=== PATIENT | female | born 1940 | race Caucasian/White ===

== ENCOUNTER 2019-05-21 14:56 | Observation (INO) | payer MEDICARE ==
[~2019-05-21] VITALS: Ht 162.6 cm; Wt 102.1 kg
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
--- OUTSIDE RECORDS SUMMARY | 2019-05-21 14:59 | XMS REPORT | Clinical Summary ---
Author Author [facility] Address Unknown Phone Unavailable Care Team Providers Care Consumer Services Advisor Name Role Phone Joel Diaz PCP Allergies Comments Active Allergy Reactions Severity Noted Date Tetanus Vaccines And Swelling 06/27/2016 Toxoid Medications End Date Status Medication Sig Dispensed Refills Start Date Active lisinopril Take 20 mg by 0 (PRINIVIL,ZESTRIL) 20 MG mouth 2 (two) tablet times daily . Active metFORMIN (GLUCOPHAGE) Take 1,000 mg 0 500 MG tablet by mouth daily with breakfast . Active aspirin 81 MG EC tablet Take 81 mg by 0 mouth daily. Active atorvastatin (LIPITOR) 20 Take 20 mg by 0 MG tablet mouth daily. Active hydroCHLOROthiazide Take 12.5 mg 0 (HYDRODIURIL) 12.5 MG by mouth tablet daily. Active glimepiride (AMARYL) 2 MG Take 2 mg by 0 tablet mouth every morning before breakfast. Active Problems Problem Noted Date H/O colostomy 07/24/[address] 07/24/2017 Generalized weakness 07/16/2016 Tachypnea 07/16/2016 Surgical pneumoperitoneum 07/16/2016 Essential hypertension 07/16/2016 Type 2 diabetes mellitus 07/16/2016 Tachycardia 07/16/2016 Elevated troponin 07/16/2016 Respiratory distress 07/16/2016 Near syncope 07/16/2016 Diverticulitis large intestine 07/11/2016 Social History Date Tobacco Use Types Packs/Day Years Used Quit: 12/02/1994 Former Smoker Smokeless Tobacco: Never Used Comments: quit smoking 1994 Alcohol Use Drinks/Week oz/Week Comments No Sex Assigned at Date Recorded Not on file Industry Job Start Date Occupation Not on file Not on file Not on file Travel End Travel History Travel Start No recent travel history available. Last Filed Vital Signs Not on file Plan of Treatment Not on file Implants Device Identifier Shelf Expiration Date Model / Serial / Lot Implanted Type Area Manufactur er 08/01/2018 4301-02 / / [id number] Memb Seprafilm Adhen Chow 5x6 Cement/Gregor N/A: Abdomen GENZYME 4301-02 - [id number] ler/Adhesi SHAHEEN: Implanted: Qty: 1 on 07/11/2016 by Chaka Georges MD 08/01/2018 4301-02 / / [id number] Memb Seprafilm Adhen Chow 5x6 Cement/Gregor N/A: Abdomen GENZYME 4301-02 - [id number] ler/Adhesi SHAHEEN: Implanted: Qty: 1 on 07/16/2016 by Chaka Georges MD 03/31/2018 4301-02 / / [id number] Memb Seprafilm Adhen Chow 5x6 Cement/Gregor N/A: Abdomen GENZYME 4301-02 - [id number] ler/Adhesi SHAHEEN: Implanted: Qty: 1 on 07/16/2016 by Chaka Georges MD 08/01/2019 4301-02 / / [id number] Memb Seprafilm Adhen Chow 5x6 Cement/Gregor GENZYME 4301-02 - [id number] ler/Adhesi SHAHEEN: Implanted: Qty: 1 on 07/24/2017 by Chaka Georges MD 09/17/2019 [id number] / / [id number] Cath Exp Silv [employer] Brakes Bonder 12.5cmx Pain N/A: Abdomen JENNIFER-C Xb119-D - [id number] Mgmt/Stimu LARK Implanted: Qty: 1 on 07/24/2017 by Chaka So MD 09/17/2019 HJ270-H / / [id number] Cath Exp Silv [employer] Brakes Bonder 12.5cmx Pain N/A: Abdomen JENNIFER-C Zc257-O - [id number] Mgmt/Stimu LARK Implanted: Qty: 1 on 07/24/2017 by Chaka So MD 09/25/2019 IF7090 / / [id number] Block Nrv C-Blk 1-7ml/Hr 600ml Pain N/A: Abdomen HALYARD Uk9161 - [id number] Mgmt/Stimu HEALTH Implanted: Qty: 1 on 07/24/2017 by Chaka So MD Results Not on fileafter 05/20/2018 Insurance Payer Benefit Subscriber ID Type Phone Address Plan / Group [employer] KELSEYCARE xxxxxxxxxxx MEDICARE ADV Advance Directives For more information, please contact: [facility] [address] [place] [address] Date Inactivated Comments Code Status Date Activated 07/30/2017 9:52 PM Full Code 07/24/2017 6:30 AM This code status was determined by: Patient 07/23/2016 6:22 PM Full Code 07/16/2016 12:37 AM This code status was determined by: Patient 07/15/2016 5:35 PM Full Code 07/11/2016 6:12 AM This code status was determined by: Patient
[2019-05-21] MEDS ORDERED: SODIUM CHLORIDE 0.9% 1000ML 1,000 ML IV SCH (15:15)
[2019-05-21] MEDS ORDERED: ACETAMINOPHEN 325 MG TAB PO NR (15:30)
[2019-05-21 15:31] LABS: BASOPHILS % 0.2 % (0.0-1.0); EOSINOPHILS # (AUTO) 0.1 (0.0-0.4); EOSINOPHILS % 1.2 % (0.0-6.0); HEMATOCRIT 32.7 % (34.2-44.1); HEMOGLOBIN 11.8 g/dL (12.0-16.0); LYMPHOCYTES % 10.9 % (18.0-39.1); MEAN CORPUSCULAR HEMOGLOBIN 28.9 pg (28-32); MEAN CORPUSCULAR HGB CONC 36.1 g/dL (31-35); MEAN CORPUSCULAR VOLUME 80.1 fL (81-99); MONOCYTES # (AUTO) 0.9 (0.2-0.8); MONOCYTES % 9.9 % (4.4-11.3); NEUTROPHILS # (AUTO) 7.1 (2.1-6.9); NEUTROPHILS % 77.3 % (38.7-80.0); PLATELET COUNT 160 x10e3/uL (140-360); RED BLOOD COUNT 4.08 x10e6/uL (3.6-5.1); RED CELL DISTRIBUTION WIDTH 12.5 % (11.7-14.4)
[2019-05-21 15:40] LABS: STREPTOCOCCUS GRP A ANTIGEN NEGATIVE (NEGATIVE)
[2019-05-21 15:50] LABS: INFLUENZAE A&B ANTIGEN (RAPID) NEGATIVE (NEGATIVE)
[2019-05-21 15:51] LABS: ALBUMIN 3.3 g/dL (3.5-5.0); ANION GAP 16.9 mmol/L (8-16); CALCIUM 8.8 mg/dL (8.4-10.2); CREATININE, SERUM 1.09 mg/dL (0.57-1.11); POTASSIUM 3.9 mmol/L (3.5-5.1)
[2019-05-21] MEDS ORDERED: ONDANSETRON HCL INJ 2MG/ML 2ML 2 MG/ML VIAL IV NR (16:00)
--- NOTE | 2019-05-21 16:28 | Diagnostic Imaging Report ---
EXAMINATION: PA and lateral views of the chest. COMPARISON: None CLINICAL HISTORY: Sepsis, chest pain DISCUSSION: Lines/tubes: None. Lungs: The lungs are well inflated and clear. There is no evidence of pneumonia or pulmonary edema. Pleura: There is no pleural effusion or pneumothorax. Heart and mediastinum: Cardiomediastinal contour is within normal limits for age with atherosclerotic calcification of the thoracic aorta. Bones and soft tissues: No acute bony abnormalities. Degenerative changes in the thoracic spine IMPRESSION: No acute cardiopulmonary abnormalities. Signed by: Dr. Davey Douglass M.D. on 05/21/2019 4:25 PM
[2019-05-21 18:05] LABS: BILIRUBIN,URINE NEGATIVE (NEGATIVE); CLARITY,URINE CLOUDY (CLEAR); COLOR,URINE STRAW (YELLOW); KETONES,URINE NEGATIVE (NEGATIVE); LEUKOCYTE ESTERASE ,URINE LARGE (NEGATIVE); NITRITE,URINE NEGATIVE (NEGATIVE); PROTEIN,URINE DIPSTICK TRACE (NEGATIVE); URINE UROBILINOGEN 0.2 mg/dL (0.2 - 1)
[2019-05-21 18:18] LABS: BACTERIA,URINE MANY /HPF; EPITHELIAL CELLS,URINE FEW /LPF; TRANSITIONAL EPI CELLS,URINE FEW; WBC,URINE (MAN) 21-50 /HPF (0-5)
--- NOTE | 2019-05-21 18:58 | NUR ---
Report to PAYTON Biggs
[2019-05-21 20:00] VITALS: BP 159/76
[2019-05-21] MEDS ORDERED: ASPIRIN 81 MG CHEW TAB PO ONE (20:30)
[2019-05-21] MEDS ORDERED: DEXTROSE 50% SYRINGE 50 ML IV PRN (20:30)
--- OUTSIDE RECORDS SUMMARY | 2019-05-21 20:34 | XMS REPORT | Clinical Summary ---
Author Author [facility] Address Unknown Phone Unavailable Care Team Providers Care Manager Labor Relations Name Role Phone Joel Diaz PCP Allergies [...] Area Manufactur er 08/01/2018 4301-02 / / [id number] Memb Seprafilm Adhen Chow 5x6 Cement/Gregor N/A: Abdomen GENZYME 4301-02 - [id number] ler/Adhesi SHAHEEN: Implanted: Qty: 1 on 07/11/2016 by Chaka Georges MD 08/01/2018 4301-02 / / [id number] Memb Seprafilm Adhen Chow 5x6 Cement/Gregor N/A: Abdomen GENZYME 4301-02 - [id number] ler/Adhesi SHAHEEN: Implanted: Qty: 1 on 07/16/2016 by Chaka Georges MD 03/31/2018 4301-02 / / [id number] Memb Seprafilm Adhen Chow 5x6 Cement/Gregor N/A: Abdomen GENZYME 4301-02 - [id number] ler/Adhesi SHAHEEN: Implanted: Qty: 1 on 07/16/2016 by Chaka Georges MD 08/01/2019 4301-02 / / [id number] Memb Seprafilm Adhen Chow 5x6 Cement/Gregor GENZYME 4301-02 - [id number] ler/Adhesi SHAHEEN: Implanted: Qty: 1 on 07/24/2017 by Chaka Georges MD 09/17/2019 FW350-W / / [id number] 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 12.5cmx Pain N/A: Abdomen JENNIFER-C Cl431-F - [id number] Mgmt/Stimu LARK Implanted: Qty: 1 on 07/24/2017 by Chaka So MD 09/17/2019 SY881-L / / [id number] 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 12.5cmx Pain N/A: Abdomen JENNIFER-C Sv156-K - [id number] Mgmt/Stimu LARK Implanted: Qty: 1 on 07/24/2017 by Chaka So MD 09/25/2019 LS7762 / / [id number] Block Nrv C-Blk 1-7ml/Hr 600ml Pain N/A: Abdomen HALYARD Fk4222 - [id number] Mgmt/Stimu HEALTH Implanted: Qty: 1 on 07/24/2017 by Chaka So MD Results Not on fileafter 05/20/2018 Insurance Payer Benefit Subscriber ID Type Phone Address Plan / Group K[employer] KELSEYCARE xxxxxxxxxxx MEDICARE ADV Advance Directives For more information, please contact: [facility] [address] [place] [place] [address] Date Inactivated Comments Code Status Date Activated 07/30/2017 9:52 PM Full Code 07/24/2017 6:30 AM This code status was determined by: Patient 07/23/2016 6:22 PM Full Code 07/16/2016 12:37 AM This code status was determined by: Patient 07/15/2016 5:35 PM Full Code 07/11/2016 6:12 AM This code status was determined by: Patient
[2019-05-21] MEDS: CEFTRIAXONE SOD 1 GM/NS 50 ML 50 ML IV SCH (20:35)
[2019-05-21] MEDS ORDERED: CARVEDILOL25 MG PO (20:45)
[2019-05-21] MEDS ORDERED: TROSPIUM CHLORI20 MG PO (20:45)
[2019-05-21] MEDS ORDERED: LISINOPRIL20 MG PO (20:45)
[2019-05-21] MEDS ORDERED: HYDROCHLOROTH12.5 M1 PO (20:45)
[2019-05-21] MEDS ORDERED: METFORMIN HCL500 M1 PO (20:45)
[2019-05-21] MEDS: INSULIN REGULAR, HUMAN 100 UNIT/1 ML 3ML VIAL SQ SCH (20:48)
--- NOTE | 2019-05-21 22:47 | NUR ---
pt placed on telemetry box# 25.
[2019-05-22] VITALS (7 sets, daily range): BP systolic 123–180; BP diastolic 57–80
--- NOTE | 2019-05-22 05:09 | NUR ---
Dr. Celis called for bp 180/70. ordered to reactivate home meds
[2019-05-22] MEDS: CARVEDILOL 12.5 MG TAB PO SCH ×3 (05:32→17:17)
[2019-05-22] MEDS: HYDROCHLOROTHIAZIDE 25 MG TAB PO SCH ×2 (05:32→08:37)
[2019-05-22] MEDS: LISINOPRIL 20 MG TAB PO SCH ×2 (05:33→08:37)
[2019-05-22 05:51] LABS: CREATINE KINASE MB 2.6 ng/mL (0-5.0)
[2019-05-22 06:43] LABS: CHOL/HDL RATIO 2.1 (3.0-3.6)
--- NOTE | 2019-05-22 07:10 | NUR ---
patient endorsed to next shift for continuity of care.
--- NOTE | 2019-05-22 07:11 | NUR ---
patient endorsed to next shift for continuity of care.
[2019-05-22] MEDS: INSULIN REGULAR, HUMAN 100 UNIT/1 ML 3ML VIAL SQ SCH ×5 (07:30→21:00)
[2019-05-22] MEDS: CEFTRIAXONE SOD 1 GM/NS 50 ML 50 ML IV SCH ×2 (08:35→21:00)
--- NOTE | 2019-05-22 11:20 | NUR ---
History [id number]
[2019-05-22 14:23] LABS: CREATINE KINASE MB 2.5 ng/mL (0-5.0)
--- NOTE | 2019-05-22 17:34 | History and Physical ---
PRIMARY CARE DOCTOR: Dr. Navdeep Ring. HOSPITAL DOCTOR: Dr. Rolando Celis. CHIEF COMPLAINT: Dizziness, pain. HISTORY OF PRESENT ILLNESS: Ms. Cruz is a pleasant 78-year-old female with dizziness. The patient with history of recurrent urinary tract infections, which she says, about every 8 months. She is currently seeing urologist, Dr. Ramos and he performed scope. The patient has outpatient ultrasound planned this month later. The patient started with symptoms of fevers that were subjective. She is having anterior chest wall and upper back pain. She complained then of gradual shortness of breath. She began with malaise. She started to have some abdominal pains and nonspecific body aches. She went to her doctor, who started Bactrim DS. As symptoms continue to progress, she came to the emergency room for further evaluation. The patient had a chest x-ray that was unremarkable. The patient with CT head with no acute changes, although there was some disproportion bilateral medial and temporal/hippocampal predominant loss as described. The patient with critical sodium 125. Urinalysis with 21-50 white cells, many bacteria. The patient also had elevated lactic acid of 23. She was recommended for hospitalization. PAST MEDICAL HISTORY: Hypertension, diabetes, hyperlipidemia, diverticulitis, colonic resection, recurrent UTIs. MEDICATIONS: Medication list as reviewed per electronic record. ALLERGIES: NO KNOWN DRUG ALLERGIES. SOCIAL HISTORY: No alcohol, no drugs. The patient smoked from age [age], one pack per day. She lives with grandson whose age is 21. She is independent and still driving. FAMILY HISTORY: Noncontributory. REVIEW OF SYSTEMS: GENERAL: No weight changes. OPHTHALMOLOGIC: No double vision. ENT: No mouth ulcers. ENDOCRINE: No known thyroid condition. PULMONARY: No asthma. CARDIAC: No heart attacks. : No blood in urine. GI: No constipation. DERMATOLOGIC: No rashes. NEUROLOGIC: No seizures. PSYCHIATRIC: No depression. OBJECTIVE: VITAL SIGNS: Afebrile, vital signs stable, reviewed per the chart record. GENERAL: In no acute distress, alert and calm now. HEENT: Normocephalic, atraumatic. NECK: Supple. Throat midline. LUNGS: Bilateral air entry, clear. CARDIOVASCULAR: S1, S2. No murmurs, rubs, or gallops. ABDOMEN: Soft, nontender. EXTREMITIES: No clubbing, no cyanosis. There is no trace 1+ edema. INTEGUMENT: No rash. No purpura. BACK: At this time, there is no longer any pain at the flank as the patient said it got better. LABORATORY DATA: 3.9 potassium, 13 BUN, 1.29 creatinine. 9 white count, 33 hematocrit, 162 platelets. IMPRESSION AND PLAN: 1. Urinary tract infection, acquired prior to hospitalization. 2. Lactic acidosis. 3. Early pyelonephritis. 4. Chronic urinary tract infections, under evaluation by outpatient urologist. 5. Diabetes. 6. Hypertension. 7. Hyperlipidemia. 8. Diverticulosis. 9. Mild anemia. 10. Hyponatremia, possibly due to thiazide diuretic versus other. Repeat blood work tomorrow. Follow up urinary cultures. We will continue IV antibiotics for now and decide if the patient can be transitioned to p.o. antibiotics in 1-2 days. She has already started to feel better. I consider possibly the thiazide is contributing to low sodium. We will follow up off thiazide. Thank you very much, Dr. Sethi, Dr. Celis for allowing me a chance to participate in the care of Ms. Cruz. Please call for questions. MD BRIDGETTE Brandon/VERONA /[id number]
[2019-05-22] MEDS: HYDRALAZINE HCL 20 MG/ML VIAL IV PRN (21:00)
[2019-05-23] VITALS: BP 138/61
[2019-05-23 04:00] VITALS: BP 124/56
[2019-05-23 05:08] LABS: BASOPHILS # (AUTO) 0.1 (0.0-0.1); BASOPHILS % 1.2 % (0.0-1.0); EOSINOPHILS # (AUTO) 0.2 (0.0-0.4); EOSINOPHILS % 3.2 % (0.0-6.0); HEMATOCRIT 35.9 % (34.2-44.1); HEMOGLOBIN 11.6 g/dL (12.0-16.0); LYMPHOCYTES # (AUTO) 1.6 (1.0-3.2); LYMPHOCYTES % 23.1 % (18.0-39.1); MEAN CORPUSCULAR HGB CONC 32.3 g/dL (31-35); MEAN CORPUSCULAR VOLUME 86.7 fL (81-99); MONOCYTES % 13.9 % (4.4-11.3); NEUTROPHILS % 58.2 % (38.7-80.0); PLATELET COUNT 114 x10e3/uL (140-360); RED BLOOD COUNT 4.14 x10e6/uL (3.6-5.1); RED CELL DISTRIBUTION WIDTH 12.7 % (11.7-14.4)
--- NOTE | 2019-05-23 07:00 | NUR ---
Patient endorsed to next shift for continuity of care.
[2019-05-23] MEDS: INSULIN REGULAR, HUMAN 100 UNIT/1 ML 3ML VIAL SQ SCH (07:30)
[2019-05-23 07:38] LABS: ALANINE AMINOTRANSFERASE 9 IU/L (0-55); ALBUMIN 3.1 g/dL (3.5-5.0); ALBUMIN/GLOBULIN RATIO 0.9 (0.8-2.0); ALKALINE PHOSPHATASE 70 IU/L (40-150); ANION GAP 12.5 mmol/L (8-16); BLOOD UREA NITROGEN 13 mg/dL (7-26); BUN/CREATININE RATIO 15 (6-25); CARBON DIOXIDE 26 mmol/L (22-29); CHLORIDE 97 mmol/L (98-107); CREATININE, SERUM 0.84 mg/dL (0.57-1.11); EST GLOMERULAR FILTRATION RATE > 60 ML/MIN (60-); GLUCOSE 122 mg/dL (74-118); MAGNESIUM 1.6 MG/DL (1.3-2.1); POTASSIUM 3.5 mmol/L (3.5-5.1)
[2019-05-23 07:45] LABS: SODIUM 132 mmol/L (136-145)
[2019-05-23 07:57] VITALS: BP 148/63
[2019-05-23] MEDS: CARVEDILOL 12.5 MG TAB PO SCH (08:14)
[2019-05-23] MEDS: LISINOPRIL 20 MG TAB PO SCH (08:14)
[2019-05-23] MEDS: CEFTRIAXONE SOD 1 GM/NS 50 ML 50 ML IV SCH (08:14)
--- NOTE | 2019-05-23 08:26 | NUR ---
Pt in room having breakfast. Resp WNL. A&O x3. IV antibiotics being administered at this time. No c/o pain to chest. Able to ambulate by self with steady gait. Call light within reach and bed in lowest position.
[2019-05-23 11:33] VITALS: BP 173/75
[2019-05-23] MEDS: HYDRALAZINE HCL 20 MG/ML VIAL IV PRN (11:34)
[2019-05-23] MEDS ORDERED: CIPROFLOXACIN500 MG PO (12:54)
[2019-05-23] MEDS ORDERED: NORVASC5 MG PO (12:54)
--- NOTE | 2019-05-23 14:19 | NUR ---
DC SUMM [id number]
--- NOTE | 2019-05-23 21:39 | Discharge Summary ---
PRIMARY CARE DOCTOR: Dr. Juan Sethi. Dena Stokes. PRIMARY DIAGNOSIS: Urinary tract infection, failure of outpatient treatment. DISCHARGE DIAGNOSIS: Urinary tract infection, failure of outpatient treatment. HOSPITAL COURSE: Mrs. Cruz is a 78-year-old female, who had dizziness and temperature of 100.5 degrees measured here, and abdominal and back pain. She was taking Bactrim DS, but was not getting better. She presents to our hospital. Notable findings were sodium 125, but also urinalysis, 21-50 white cells. She has lactic acid of 23. She was recommended for hospitalization. She was given IV antibiotics. She was feeling better after the first hospital day. We kept to see if we can get any specific guidance for antibiotics from cultures, but cultures were contaminated. After improvement, we allowed her to discharge on oral ciprofloxacin. Thiazide diuretics were stopped due to the low sodium. The patient had followup in the following with her urologist. Blood pressure noted high and Norvasc was added. Discussed with daughter, who was a nurse. Follow up with Dr. Sethi and urologist in coming weeks. DIET: Cardiac diet. ACTIVITY: As tolerated. MEDICINES ON DISCHARGE: Please see discharge medication record for medicines. Greater than 30 minutes in direct care and discharge coordination today. MD BRIDGETTE Brandon/[place] /[id number]
== END 2019-05-23 13:52 | disposition home or self-care (01) ==
LOC: ER 14:56 → ERHOLD 20:32 → IMCU 22:47
PROVIDERS: ADMIT Internal Medicine; ATTEND Internal Medicine
DX: N30.01 Acute cystitis with hematuria (principal); I10 Essential (primary) hypertension; R07.9 Chest pain, unspecified; E11.9 Type 2 diabetes mellitus without complications; E78.5 Hyperlipidemia, unspecified; Z82.49 Family history of ischemic heart disease and other diseases of the circulatory system; E87.2 Acidosis; D64.9 Anemia, unspecified; E87.1 Hypo-osmolality and hyponatremia; R42 Dizziness and giddiness; Z79.84 Long term (current) use of oral hypoglycemic drugs
CPT/HCPCS: 36415 ×3; 71046; 80053 ×2; 80061; 81001; 82550 ×2; 82553 ×2; 82948; 83518; 83605; 83735; 84100; 84484 ×2; 85025 ×2; 87040; 87070; 87086; 87400; 93005; 99284; G0378 ×3; J0360 ×2; J0696 ×3; J1817; J7030; J2405